=== PATIENT | female | born 1975 | race Hispanic/Latino ===

== ENCOUNTER 2017-04-16 13:40 | Emergency (ER) | payer OTHER ==
[2017-04-16 14:19] LABS: #Basophils 0.1 thou/uL (0.0-0.2); #Lymphocytes 1.6 thou/uL (1.20-3.40); #Monocytes 0.5 thou/uL (0.11-0.59); #Neutrophils 5.4 thou/uL (1.40-6.50); %Eosinophils 0.5 % (0.0-10.0); %Lymphocytes 20.8 % (21.0-51.0); %Monocytes 7.1 % (0.0-10.0); Hematocrit 41.9 % (36.0-47.0); Mean Platelet Volume 7.8 fL (7.4-10.4); Red Blood Cell (RBC) Count 4.96 mill/uL (4.20-5.40); White Blood Cell (WBC) Count 7.7 thou/uL (4.8-10.8)
--- NOTE | 2017-04-16 17:19 | ULT ---
PELVIC ULTRASOUND: History: Vaginal bleeding. Technique: Real-time imaging of the pelvis was obtained transabdominally as well as with an endovagin al probe. FINDINGS: There is an intrauterine cystic structure which appears to be a gestational sac with what is appears to be a yolk sac. The gestational sac measurements are 8 mm, corresponding to 5 weeks 4 days. A pole is not definitely identified. There is what appears to be a complex fluid collection adjacent t o the gestational sac in the endometrium. This probably represents a large area of blood clot. It adan sures 2.3 cm in diameter. A follicle is seen involving the left adnexa. It is slightly complex in appearance. The right ovary i s more difficult to visualize but appears unremarkable. Doppler evaluation with spectral analysis. It is difficult to obtain flow as the right adnexa is difficult to visualize. The left adnexa shows n ormal flow. IMPRESSION: Intrauterine gestational sac without any definite pole. Adjacent to the sac is a heterogeneous density within the endometrium which is very suspicious for adjacent blood clot. Follow up ultrasound is suggested as clinically indicated. POS: [facility]
== END 2017-04-16 16:13 | disposition home or self-care (01) ==
LOC: SCSER 13:40
DX: O09.91 Supervision of high risk pregnancy, unspecified, first trimester (principal); O20.0 Threatened abortion; Z3A.01 Less than 8 weeks gestation of pregnancy
CPT/HCPCS: 36415; 76856; 84702; 85025; 86900; 86901; 87491; 87591

== ENCOUNTER 2017-06-02 11:46 | Emergency (ER) | payer OTHER ==
[2017-06-02 12:20] LABS: #Eosinphils 0.1 thou/uL (0.0-0.7); #Lymphocytes 1.5 thou/uL (1.20-3.40); #Monocytes 0.5 thou/uL (0.11-0.59); #Neutrophils 7.8 thou/uL (1.40-6.50); %Basophils 0.5 % (0.0-1.0); %Eosinophils 0.6 % (0.0-10.0); %Lymphocytes 15.5 % (21.0-51.0); %Monocytes 5.3 % (0.0-10.0); %Neutrophils 78.1 % (42.0-75.0); Hemoglobin 13.4 g/dL (12.0-16.0); Mean Corpuscular HGB CONC 33.4 g/dL (32.0-36.0); Mean Corpuscular Hemoglobin 29.8 pg (27.0-31.0); Mean Corpuscular Volume 89.4 fl (81.0-99.0); Mean Platelet Volume 7.8 fL (7.4-10.4); Platelet Count 235 thou/uL (130-400); RBC Distribution Width 13.3 % (11.5-14.5); Red Blood Cell (RBC) Count 4.48 mill/uL (4.20-5.40); White Blood Cell (WBC) Count 9.9 thou/uL (4.8-10.8)
[2017-06-02 13:02] LABS: Bilirubin Negative (Negative); Blood, Urine Large (Negative); Clarity CLOUDY (Clear); Glucose, Urine (Dipstick) Negative (Negative); Leukocyte Small (Negative); Nitrite Negative (Negative); Protein, Urine (Dipstick) Negative (Neg-Trace); Specific Gravity, Urine 1.018 (1.002-1.036); Urobilinogen 0.2 mg/dL (0.2-1.0)
[2017-06-02 13:06] LABS: Bacteria/HPF None Seen HPF (None Seen); Hyaline Casts/LPF 0-3 HYALINE CAST LPF (0-3 Hyaline); RBC/HPF GREATER THAN 50-TNTC HPF (0-3); Squamous Epithelial 0-3 HPF (0-3); WBC/HPF 0-3 HPF (0-3)
[2017-06-04 00:33] LABS: Chlamydia by PCR Not Detected (NotDetected); GC by PCR Not Detected (NotDetected)
== END 2017-06-02 15:05 | disposition home or self-care (01) ==
LOC: ERS 11:46
DX: O09.521 Supervision of elderly multigravida, first trimester (principal); O20.0 Threatened abortion; Z3A.12 12 weeks gestation of pregnancy
CPT/HCPCS: 36415; 81003; 81015; 84702; 85025; 86900; 86901; 87480; 87491; 87510; 87591; 87660